=== PATIENT | male | born 1970 | race Caucasian/White ===

== ENCOUNTER 2022-11-17 18:26 | Emergency (ER) | payer BC, SELFPAY ==
--- NOTE | ~2022-11-17 | XR_ITS ---
Clinical Indication: Cough PA and lateral views of the chest: Comparison: None Findings: The lungs are clear, without evidence of focal consolidation or pleural effusion. Cardiome diastinal silhouette is within normal limits. Bones and soft tissues are unremarkable. Impression: Normal chest. Reviewed, dictated and finalized at [facility]. C ENGINEER Impression: Normal chest.
[2022-11-17 18:37] VITALS: BP 147/95; PULSE 132; RESP 16; TEMP 36.9; O2SAT 98
[2022-11-17 18:45] VITALS: BP 147/95; PULSE 132; RESP 16; TEMP 36.9; O2SAT 98
--- NOTE | 2022-11-17 18:51 | ED.GENADULT ---
HPI - General Adult General Chief complaint: Upper Respiratory Infection Stated complaint: Vomiting/Chest Congestioin Source: patient Mode of arrival: ambulatory Limitations: no limitations History of Present Illness HPI narrative: Patient presents for evaluation of sick symptoms for the last 3 days. Symptoms include fever, productive cough of green sputum, exertional dyspnea, sore throat, nausea, vomiting, and decreased appetite. He states he and his family were on vacation in [place] two weeks ago. His daughter had a febrile seizure while on vacation. EMS took her to the hospital where she tested positive for COVID. They returned home to the area. He did have some rhinorrhea that he attributed to allergies. He states his daughter was taken off quarantine. She then developed a cough. Her ballet professor tested her for strep two days ago which was positive. Pt was concerned he may also so came in for further evaluation. He has been taking Robitussin/dextromethorphan for his symptoms. He does not smoke. Denies any chest pain. Related Data Allergies Allergy/AdvReac Type Severity Reaction Status Date / Time No Known Allergies Allergy Verified 11/17/22 18:44 Review of Systems Review of Systems: CONSTITUTIONAL: Reports fever and fatigue EYES: Denies visual changes, redness, or discharge. ENT: Reports sore throat. Denies rhinorrhea, congestion, or otalgia. CARDIOVASCULAR: Denies chest pain, palpitations, or edema. RESPIRATORY: Reports productive cough of green sputum with exertional dyspnea and wheezing. GASTROINTESTINAL: Reports nausea and vomiting. Denies abdominal pain or diarrhea GENITOURINARY: Denies dysuria or hematuria. SKIN: Denies rash or itching. MUSCULOSKELETAL: Denies back pain, joint pain, or myalgia. NEUROLOGIC: Denies headache, numbness, dizziness, or weakness. PSYCHIATRIC: Denies anxiety or depression. [facility] Past Medical History Medical History (Updated 11/17/22 @ 19:40 by Bryan Schuler, BERNADETTE, MILLICENT) History of retinal detachment Surgical History Surgical History (Updated 11/17/22 @ 18:58 by BERNADETTE Candelario, MILLICENT) History of tonsillectomy Family History Family History Mother Family history non-contributory Social History Social History Substance use: never Living arrangements: with family Gender identity (if verbalized by the patient): Male Sexual Orientation (if Verbalized by the Patient): Lesbian, Babin, or Homosexual Spiritual care concerns: No Exam Narrative: GENERAL: Well-appearing, well-nourished, and in no acute distress. HEAD: Normocephalic, atraumatic. EYES: PERRLA and EOMI. ENT: Nares clear, no rhinorrhea or epistaxis. Mucous membranes moist. Oropharynx without tonsillar hypertrophy exudate or other lesions. Bilateral TMs pearly linton nonbulging NECK: Supple. No adenopathy or masses. No carotid bruits or JVD CHEST: Expiratory wheezing noted and right lung alexander posteriorly. Cough present on exam HEART: Rate 140. Normal rhythm. No murmur heard. Normal peripheral pulses. ABDOMEN: Soft, nontender, nondistended, normal active bowel sounds. EXTREMITIES: Normal range of motion. No edema. SKIN: Warm, dry, no rash. NEURO: No focal deficits. Alert and oriented x3. PSYCH: Anxious. Course Course Emergency Course: This is a 52-year-old male who presented for evaluation of sick symptoms. He was initially tachycardic. COVID, influenza, strep, chest x-ray were all negative. He mentioned he had not been eating or drinking as a result of his nausea, vomiting and decreased appetite. He was given Zofran. He was able to tolerate oral fluid replacement. He verbalized marked reduction in his symptoms thereafter. Heart rate normalized to 100 beats per minute. Based on exposure to strep opted for treatment with amoxicillin. Will also discharge with Zofran.
--- NOTE | 2022-11-17 18:52 | ECG_ITS ---
Measurements Intervals [place] Rate: 127 P: 48 AR: 141 QRS: 81 QRSD: 102 T: 18 QT: 309 QTc: 451 Interpretive Statements SINUS TACHYCARDIA OTHERWISE WITHIN NORMAL LIMITS ABNORMAL RHYTHM ECG NO PREVIOUS ECG AVAILABLE FOR COMPARISON Electronically Signed On 11-18-2022 12:01:40 TOTER by Nikolas Dietz M.D.
[2022-11-17] MEDS: ONDANSETRON HCL ODT 4 MG TABLET PO (19:05)
[2022-11-17 19:19] VITALS: PULSE 113
[2022-11-17 19:39] VITALS: PULSE 100
== END 2022-11-17 19:47 | disposition home or self-care (01) ==
PROVIDERS: Emergency Provider Nurse Practitioner; PCP Internal Medicine
DX: J02.9 Acute pharyngitis, unspecified (principal); R11.2 Nausea with vomiting, unspecified; Z20.818 Contact with and (suspected) exposure to other bacterial communicable diseases; Z20.822 Contact with and (suspected) exposure to COVID-19
CPT/HCPCS: 71046; 87081; 87426; 87804; 87880; 93005; 99213; A9270; C9803; G0463